=== PATIENT | male | born 1955 | race Caucasian/White ===

== ENCOUNTER 2017-07-08 06:49 | Emergency (ER) | payer BC ==
[~2017-07-08] VITALS: Ht 167.6 cm; Wt 76.4 kg
[2017-07-08 07:43] LABS: HEMATOCRIT 46.9 % (38.0-50.0); MCH 29.8 PG (29.0-34.0); MCHC 34.3 G/DL (30.0-36.0); MCV 86.7 FL (86-99); MEAN PLAT.VOLUME 12.7 uM^3 (9.0-12.4); PLATELET COUNT 134 K/uL (156-360); RBC DIS.WIDTH-CV 13.7 % (11.8-14.6); RBC DIS.WIDTH-SD 43.8 % (39-53); RED BLOOD COUNT 5.41 M/uL (4.00-5.50)
[2017-07-08 07:54] LABS: CHLORIDE 108 mEq/L (99-109); POTASSIUM 4.2 mEq/L (3.7-5.4); SODIUM 141 mEq/L (136-147)
[2017-07-08 07:56] LABS: GLUCOSE 157 mg/dL (70-99)
[2017-07-08 07:57] LABS: ANION GAP 13 MEQ/L (2-14)
[2017-07-08 07:58] LABS: TOTAL BILIRUBIN 1.3 mg/dL (0.0-1.0)
[2017-07-08 07:59] LABS: ALKALINE PHOSPHATASE 58 IU/L (3-129); GFR ESTIMATE (CALCULATED) > 59 mL/min/
[2017-07-08 08:01] LABS: UREA NITROGEN (BUN) 17 mg/dL (9-23)
[2017-07-08 08:51] LABS: ADD MIUA? YES; BILIRUBIN NEGATIVE; BLOOD LARGE; COLOR YELLOW ((YELLOW)); GLUCOSE (STRIP) 150; KETONES 20; LEUKOCYTES NEGATIVE; NITRITE NEGATIVE; PROTEIN (STRIP) 30; SPECIFIC GRAVITY 1.023 (1.000-1.030); UROBILINOGEN 0.2 MG/DL (0.2-1.0)
[2017-07-08 09:01] LABS: BACTERIA RARE /HPF; CALCIUM OXALATE CRYSTALS 2+ /HPF; EPITHELIAL CELLS RARE /HPF; MUCUS TRACE /LPF; RED BLOOD CELLS TNTC /HPF (0-5); UCUL ADDED? YES; URIC ACID CRYSTALS 2+ /HPF; WHITE BLOOD CELLS 0-5 /HPF (0-5)
[2017-07-08] MEDS ORDERED: ZOFRAN ODT4 MG PO (09:44)
[2017-07-08] MEDS ORDERED: FLOMAX0.4 MG PO (09:44)
[2017-07-08] MEDS ORDERED: PERCOCET 5/31 TABLET PO (09:44)
[2017-07-08] MEDS ORDERED: MOTRIN400 MG PO (09:44)
[2017-07-08 10:23] VITALS: BP 121/75
== END 2017-07-08 10:28 | disposition home or self-care (01) ==
LOC: EME 06:49
DX: N13.2 Hydronephrosis with renal and ureteral calculous obstruction (principal); E11.9 Type 2 diabetes mellitus without complications
CPT/HCPCS: 74176; 80053; 81003; 85027; 87086; 99281; 99285; J1885; J2405; J3010; J7030

== ENCOUNTER 2018-04-08 06:16 | Emergency (ER) | payer BC ==
[~2018-04-08] VITALS: Ht 172.7 cm; Wt 81.0 kg
[~2018-04-08 06:16] MED LIST: FLOMAX0.4 MG PO; MOTRIN400 MG PO; PERCOCET 5/31 TABLET PO; ZOFRAN ODT4 MG PO
[2018-04-08 06:58] LABS: HEMATOCRIT 42.8 % (38.0-50.0); MCH 30.3 PG (29.0-34.0); MCV 86.5 FL (86-99); PLATELET COUNT 123 K/uL (156-360); RBC DIS.WIDTH-SD 40.6 % (39-53); RED BLOOD COUNT 4.95 M/uL (4.00-5.50); WHITE BLOOD COUNT 9.7 K/uL (4.1-10.2)
[2018-04-08 07:34] LABS: CHLORIDE 110 MEQ/L (99-109); GFR ESTIMATE (CALCULATED) > 59 mL/min/ (58.99-99999); GLUCOSE 133 mg/dL (70-99); POTASSIUM 3.6 MEQ/L (3.7-5.4); SODIUM 141 MEQ/L (136-147); UREA NITROGEN (BUN) 20 mg/dL (9-23)
[2018-04-08 08:50] LABS: APPEARANCE CLOUDY ((CLEAR)); BILIRUBIN NEGATIVE; BLOOD LARGE; COLOR YELLOW ((YELLOW)); GLUCOSE (STRIP) 50; KETONES NEGATIVE; LEUKOCYTES NEGATIVE; NITRITE NEGATIVE; PROTEIN (STRIP) 30; UROBILINOGEN 0.2 MG/DL (0.2-1.0)
[2018-04-08 09:03] LABS: BACTERIA RARE /HPF; EPITHELIAL CELLS RARE /HPF; HYALINE CASTS 0-5 /LPF; MUCUS TRACE /LPF; RED BLOOD CELLS TNTC /HPF (0-5); WHITE BLOOD CELLS 0-5 /HPF (0-5)
[2018-04-08] MEDS ORDERED: FLOMAX0.4 MG PO (09:30)
[2018-04-08] MEDS ORDERED: PERCOCET 5/31 TABLET PO (09:30)
[2018-04-08] MEDS ORDERED: ZOFRAN4 MG PO (09:30)
[2018-04-08 09:39] VITALS: BP 127/72
== END 2018-04-08 11:25 | disposition home or self-care (01) ==
LOC: EME 06:16
PROVIDERS: Emergency Medicine
DX: N13.2 Hydronephrosis with renal and ureteral calculous obstruction (principal); Z87.442 Personal history of urinary calculi; Z88.6 Allergy status to analgesic agent
CPT/HCPCS: 74176; 80048; 81003; 85027; 99281; 99285; J2270; J2405; J3010; J7030